=== PATIENT | female | born 1935 | race Asian ===

== ENCOUNTER 2016-09-16 15:24 | Inpatient (IN) | payer OTHER, MEDICARE ==
[~2016-09-16] VITALS: Ht 157.5 cm; Wt 67.6 kg
[~2016-09-16 15:24] MED LIST: ASPI81CT89 PO; CELE200C PO; LAC PO; METO25TA PO; ORE25 PO; RANI-287 PO; SIMV40TA5 PO; SULF-59 PO; TYL3 PO
[2016-09-16 15:33] VITALS: BP 148/70
--- NOTE | 2016-09-16 15:35 | NUR ---
Patient BIBA to bed 4. at this time.
[2016-09-16] MEDS ORDERED: NACL 0.9% 1,000 ML IV SCH (15:43)
[2016-09-16] MEDS ORDERED: ONDANSETRON 4 MG/2 ML VIAL IVP ONE (15:45)
--- NOTE | 2016-09-16 15:50 | NUR ---
PT WAS BIBA WITH GENERALIZED WEAKNESS, WITH N/V/ SKIN IS PINK/WARM/DRY;LUNGS CLEAR BL; HR EVEN AND REGULAR; PT HAS FEVER, PATIENT POSITIONED FOR COMFORT; HOB ELEVATED; BEDRAILS UP X2; BED DOWN. ER MD MADE AWARE OF PT STATUS.
[2016-09-16 16:25] LABS: BASOPHILS # (AUTO) 0.1 K/uL (0.00-0.22); BASOPHILS % (AUTO) 0.6 % (0.0-2.0); EOSINOPHILS # (AUTO) 0.3 K/uL (0-0.4); EOSINOPHILS % (AUTO) 2.5 % (0.0-4.0); HEMOGLOBIN 11.2 g/dL (12.0-16.0); LYMPHOCYTES # (AUTO) 0.6 K/uL (2.5-16.5); LYMPHOCYTES % (AUTO) 4.6 % (20.5-51.1); MEAN CORPUSCULAR HEMOGLOBIN 24 pg (27-31); MEAN CORPUSCULAR HGB CONC 32 g/dL (33-37); MEAN CORPUSCULAR VOLUME 75 fL (80-94); MONOCYTES # (AUTO) 0.6 K/uL (0.8-1.0); MONOCYTES % (AUTO) 4.5 % (1.7-9.3); NEUTROPHILS # (AUTO) 12.3 K/uL (1.8-7.7); NEUTROPHILS % (AUTO) 87.8 % (42.2-75.2); PLATELET COUNT (AUTO) 135 K/uL (140-450); RED BLOOD CELL COUNT(AUTO) 4.67 MIL/uL (4.20-5.40); RED CELL DISTRIBUTION WIDTH 17.7 % (11.6-13.7); WHITE BLOOD COUNT (AUTO) 13.9 K/uL (4.8-10.8)
[2016-09-16 16:30] LABS: AMYLASE 70 U/L (25-115); LIPASE 69 U/L (73-393)
[2016-09-16 16:34] LABS: PARTIAL THROMBOPLASTIN TIME 27.2 secs (22-35.6); PROTHROMBIN TIME 10.3 secs (10.8-13.4)
[2016-09-16 16:36] LABS: ALANINE AMINOTRANSFERASE 14 U/L (14-59); ALBUMIN 3.4 g/dL (3.4-5.0); ALKALINE PHOSPHATASE 139 U/L (46-116); ANION GAP 13.9 (8-16); ASPARTATE AMINOTRANSFERASE 18 U/L (15-37); CALCIUM 8.3 mg/dL (8.5-10.1); CARBON DIOXIDE 24.8 mmol/L (21-32); CHLORIDE 104 mmol/L (98-107); CREATININE 1.4 mg/dL (0.6-1.3); GLUCOSE 147 mg/dL (74-106); POTASSIUM 3.7 mmol/L (3.5-5.1); SODIUM SERUM 139 mmol/L (136-145); TOTAL BILIRUBIN 0.9 mg/dL (0.0-1.0); TOTAL PROTEIN, SERUM 8.2 g/dL (6.4-8.2); UREA NITROGEN, BLOOD 21 mg/dL (7-18)
[2016-09-16 16:39] LABS: LACTIC ACID 1.3 mmol/L (0.4-2.0)
[2016-09-16] MEDS ORDERED: ACETAMINOPHEN 650 MG SUPP RC ONE (16:50)
[2016-09-16] MEDS ORDERED: IBUPROFEN 600 MG TAB PO ONE (16:50)
--- NOTE | 2016-09-16 17:16 | NUR ---
MOTRIN 600MG CRUSHED MIXED WITH APPLE JUICE
--- NOTE | 2016-09-16 17:47 | NUR ---
ORAL TEMP CHECKED 101.2
[2016-09-16] MEDS ORDERED: NACL 0.9% 1,000 ML IV ONE (17:50)
[2016-09-16] MEDS ORDERED: cefTRIAXone 1,000 MG VIAL ONE (18:34)
[2016-09-16 18:44] LABS: APPEARANCE,URINE TURBID (CLEAR); BILIRUBIN,URINE NEGATIVE (NEGATIVE); BLOOD, URINE 2+ (NEGATIVE); COLOR,URINE YELLOW (YELLOW); LEUKOCYTE ESTERASE ,URINE 2+ (NEGATIVE); NITRITE, URINE POSITIVE (NEGATIVE); PROTEIN,URINE 1+ (NEGATIVE); UGLUCOSE NEGATIVE (NEGATIVE)
[2016-09-16] MEDS ORDERED: HYDROcodone/APAP 5/325 MG 1 TAB TAB PO PRN (18:55)
[2016-09-16 18:56] LABS: BACTERIA,URINE 2+ /HPF (None Seen); RBC,URINE >100 /HPF (0-5); SQUAMOUS EPITHELIAL CELL,UR None Seen /LPF (0-3 (FEW)); WBC,URINE TOO MANY TO COUNT /HPF (0-5)
[2016-09-16] MEDS ORDERED: DEXT 5% / NACL 0.9% 500 ML IV ONE (19:00)
--- NOTE | 2016-09-16 19:15 | NUR ---
REPORT GIVEN TO MANAGER RESPIRATORY CARE RN .
--- NOTE | 2016-09-16 19:49 | NUR ---
Patient will be admitted to care of DR COLÓN. Admited to TELE 121B. Will go to room 121B. Belongings list completed. Report to ANGELES BLUE .
[2016-09-16 19:55] VITALS: BP 106/55
--- NOTE | 2016-09-16 19:55 | NUR ---
PATIENT ARRIVED IN THE UNIT ON A GURNEY. PATIENT SPEAKS ROMANIAN. PATIENT LETHARGIC BUT IS ABLE TO FOLLOW SIMPLE COMMANDS. NO S/SX OF DISTRESS NOTED. PT ON 3L O2 VIA NC. TATE CATHETER IN PLACE DRAINING CLEAR, YELLOW URINE. IV LINE NOTED TO THE RIGHT WRIST. PATIENT PLACED ON TELE MONITORING. BED LOWERED AND CALL LIGHT WITHIN REACH.
[2016-09-16] MEDS: ACETAMINOPHEN 325 MG TAB PO PRN (20:36)
[2016-09-16] MEDS: SIMVASTATIN 40 MG TAB PO SCH (20:36)
[2016-09-16] MEDS: FAMOTIDINE 20 MG TAB PO SCH (20:37)
[2016-09-16] MEDS: METOPROLOL 25 MG TAB PO SCH (20:37)
[2016-09-16] MEDS ORDERED: PNEUMOCOCCAL VACCINE 23 MCG/0.5 ML VIAL IMVAC SCH (22:30)
--- NOTE | 2016-09-16 23:53 | NUR ---
DECREASE IN PATIENT'S LOC NOTED. TEMP 96.9 BP: 80/40 HR: 81 02 SAT 99% ON 3L. PAGED DR RAZO
--- NOTE | 2016-09-16 23:58 | NUR ---
DR RAZO NOTFIED ABOUT THE PATIENT'S STATUS. ORDERS RECEIVED
[2016-09-17] VITALS (10 sets, daily range): BP systolic 80–140; BP diastolic 40–59
[2016-09-17] MEDS ORDERED: VANCOMYCIN PER PHARMACY MC PRN
[2016-09-17] MEDS ORDERED: NACL 0.9% 1,000 ML IV ONE
[2016-09-17] MEDS ORDERED: VANCOMYCIN 1GM/DEXT 5% PREMIX 200 ML IV ONE
--- NOTE | 2016-09-17 00:05 | NUR ---
NS BOLUS INITIATED. WILL CONTINUE TO MONITOR
--- NOTE | 2016-09-17 00:15 | NUR ---
BP 105/53 HR 79. PATIENT LETHARGIC
[2016-09-17 00:36] LABS: BLOOD GAS HCO3 21.1 mmol/L; BLOOD GAS PCO2 40.8 mmHg (20-50); BLOOD GAS PH 7.332 (7.35-7.45); BLOOD GAS PO2 104.5 mmHg
[2016-09-17 00:37] LABS: BLOOD GAS BASE EXCESS -4.4 mmol/L (-2.0-2.0); BLOOD GAS O2 SAT% 97.6 % (92.0-98.5)
--- NOTE | 2016-09-17 00:40 | NUR ---
BP: 86/41 HR:78
--- NOTE | 2016-09-17 00:50 | NUR ---
PATIENT TRANSFERRED TO ICU. REPORT GIVEN TO MIRZA MACARIO T
--- NOTE | 2016-09-17 00:55 | NUR ---
RECEIVED BEDSIDE REPORT FROM ANGELES BLUE. PATIENT IS AWAKE AND ALERT AND SPEAKS PRIMARILY IRISH. PATIENT IS ABLE TO FOLLOW SIMPLE COMMANDS. THERE IS A #18 IN THE RIGHT WRIST RECEIVING D5NS AT 100 ML/HR. VITALS ARE STABLE AT THIS TIME. PATIENT'S BLOOD PRESSURE IS 103/53. PATIENT IS RECEIVING OXYGEN THERAPY AT 3LPM VIA NASAL CANNULA. NO S/S OF SOB OR RESPIRATORY DISTRESS NOTED. THERE IS A TATE CATHETER IN PLACE WITH MODERATE AMOUNT OF LORIE COLORED URINE NOTED. PLAN OF CARE TONIGHT TO INCLUDE CARDIAC MONITORING, VITALS Q2H, AND MEDICATION ADMINISTRATION. HOB AT 30 DEGREES WITH BED IN LOW POSITION. WILL CONTINUE TO MONITOR PATIENT.
[2016-09-17] MEDS ORDERED: PIPERACILLIN/TAZOBACTAM 3.375 GM VIAL IV ONE ×2 (00:56→05:37)
--- NOTE | 2016-09-17 01:01 | NUR ---
PAGED DR. RAZO. WILL WAIT FOR CALL BACK.
[2016-09-17] MEDS ORDERED: NOREPINEPHRINE 4 MG in DEXTROSE 5% 250 ML IV PRN (01:10)
--- NOTE | 2016-09-17 01:10 | NUR ---
SPOKE TO DR. RAZO TO CLARIFY ORDERS REGARDING LEVOPHED. MD ORDERED LEVOPHED 4MG PER PROTOCOL TO MAINTAIN SYSTOLIC 90 AND ABOVE. WILL FOLLOW UP WITH NEW MD ORDERS.
[2016-09-17] MEDS: PIPER/TAZO 3.375GM/D5W PREMIX 50 ML IV SCH ×4 (01:40→21:29)
[2016-09-17] MEDS ORDERED: VANCOMYCIN 1,000 MG VIAL ONE (01:52)
--- NOTE | 2016-09-17 02:35 | NUR ---
PATIENT RESTING COMFORTABLY IN BED WITH NO SIGNS OF DISTRESS OR SOB NOTED. HOB AT 30 DEGREES WITH BED IN LOW POSITION. WILL CONTINUE TO MONITOR PATIENT.
--- NOTE | 2016-09-17 03:00 | NUR ---
PATIENT REPOSITIONED FOR COMFORT. NO SIGNS OF SOB OR DISTRESS NOTED. BLOOD PRESSURE IS 105/41 AND HR IS 72. CONTINUE TO MONITOR PATIENT.
--- NOTE | 2016-09-17 04:05 | NUR ---
PATIENT REPOSITIONED FOR COMFORT. PATIENT REQUESTED BLANKET. PROVIDED PATIENT WITH 1 BLANKET. PATIENT'S NEEDS MET AT THIS TIME. VITALS SIGNS STABLE. CONTINUE TO MONITOR PATIENT.
--- NOTE | 2016-09-17 04:58 | NUR ---
YARD SUPERVISOR COTTON GIN MIKO AT BEDSIDE FOR MORNING LAB DRAWS.
[2016-09-17] MEDS: ACETAMINOPHEN 325 MG TAB PO PRN ×2 (05:45→11:03)
[2016-09-17 06:13] LABS: BASOPHILS # (AUTO) 0.1 K/uL (0.00-0.22); HEMATOCRIT 29.8 % (36-48); HEMOGLOBIN 9.4 g/dL (12.0-16.0)
[2016-09-17 06:20] LABS: BASOPHILS % (AUTO) 0.4 % (0.0-2.0); EOSINOPHILS # (AUTO) 0.2 K/uL (0-0.4); EOSINOPHILS % (AUTO) 1.1 % (0.0-4.0); LYMPHOCYTES # (AUTO) 1.5 K/uL (2.5-16.5); LYMPHOCYTES % (AUTO) 10.5 % (20.5-51.1); MEAN CORPUSCULAR HEMOGLOBIN 24 pg (27-31); MEAN CORPUSCULAR HGB CONC 32 g/dL (33-37); MEAN CORPUSCULAR VOLUME 76 fL (80-94); MONOCYTES # (AUTO) 1.2 K/uL (0.8-1.0); MONOCYTES % (AUTO) 8.5 % (1.7-9.3); NEUTROPHILS # (AUTO) 11.6 K/uL (1.8-7.7); NEUTROPHILS % (AUTO) 79.5 % (42.2-75.2); PLATELET COUNT (AUTO) 141 K/uL (140-450); RED CELL DISTRIBUTION WIDTH 17.5 % (11.6-13.7); WHITE BLOOD COUNT (AUTO) 14.6 K/uL (4.8-10.8)
[2016-09-17 06:42] LABS: ANION GAP 11.2 (8-16); CALCIUM 7.1 mg/dL (8.5-10.1); CARBON DIOXIDE 23.5 mmol/L (21-32); CHLORIDE 110 mmol/L (98-107); CREATININE 1.4 mg/dL (0.6-1.3); GLUCOSE 174 mg/dL (74-106); POTASSIUM 3.7 mmol/L (3.5-5.1); SODIUM SERUM 141 mmol/L (136-145); UREA NITROGEN, BLOOD 19 mg/dL (7-18)
--- NOTE | 2016-09-17 07:10 | NUR ---
PATIENT IN STABLE CONDITION WITH NO SIGNS OF DISTRESS NOTED. ALL PATIENT'S NEEDS ATTENDED TO DURING SHIFT. ENDORSED CONTINUITY OF CARE TO TUNG RN.
--- NOTE | 2016-09-17 07:20 | NUR ---
RECEIVED REPORT FROM MIRZA MACARIO. PT ALERT AND ORIENTED X3. VERBALLY RESPONSIVE. FAROESE SPEAKING. VERY LITTLE LAO. ABLE TO COMMUNICATE THROUGH GESTURES AND VICE PRESIDENT OF TALENT ACQUISITION NEEDED. NO C/O PAIN OR DISCOMFORT. BILATERAL PERRLA NOTED IN EYES. PT ON 3 L O2 SATURATING AT 100%. SR ON MONITOR. ABLE TO MOVE ALL EXTREMITIES. SKIN IS INTACT. R WRIST 18 GAUGE IV NOTED. PATENT AND INTACT. NO C/O NAUSEA OR VOMITING. TATE CATHETER NOTED. DRAINING YELLOW URINE. SAFETY PRECAUTION MAINTAINED. NO S/SX OF ACUTE DISTRESS NOTED. CALL LIGHT WITHIN REACH. BED AT LOWEST SETTING. WILL CONTINUE TO MONITOR FOR CHANGES.
[2016-09-17] MEDS ORDERED: PROBIOTIC SCREEN 1 EA MISC MC PRN (07:30)
[2016-09-17] MEDS ORDERED: LACTOBACILLUS ACIDOPHILUS PO SCH (08:00)
[2016-09-17] MEDS ORDERED: [UNRECOGNIZED DRUG - OTHER] PO SCH (08:00)
[2016-09-17] MEDS ORDERED: LEVOFLOXACIN 500 MG/D5W PREMIX 100 ML IV SCH (08:00)
--- NOTE | 2016-09-17 08:00 | NUR ---
PT ABLE TO CONSUME 50% OF REGULAR DIET DESPITE ONLY HAVING ONE TOOTH. TOLERATED WELL. PER GRANDDAUGHTER NICK, PT EATS SOFT SOLID FOOD AT HOME LIKE THAT. MD NOTIFIED. DIET CHANGED PER MD INSTRUCTION FOR NOW. WILL CONTINUE TO MONITOR TOLERANCE AT LUNCH.
[2016-09-17] MEDS: FAMOTIDINE 20 MG TAB PO SCH ×2 (08:55→21:29)
[2016-09-17] MEDS: ASPIRIN 81 MG TAB.CHEW PO SCH (08:55)
[2016-09-17] MEDS: LACTOBACILLUS RHAMNOSUS GG 1 EACH CAP GT SCH ×2 (08:55→21:29)
[2016-09-17] MEDS: METOPROLOL 25 MG TAB PO SCH (08:55)
--- NOTE | 2016-09-17 09:00 | NUR ---
MEDICATION ADMINISTERED ORDERED. CRUSHED WITH APPLE SAUCE. TOLERATED WELL.
[2016-09-17] MEDS: CELECOXIB 100 MG CAP PO SCH (09:02)
--- NOTE | 2016-09-17 09:30 | NUR ---
PATIENT HAS BEEN SCREENED AND CATEGORIZED HIGH NUTRITION RISK. PATIENT WILL BE SEEN WITHIN 1-2 DAYS OF ADMISSION. 09/17/16-09/18/[address]
--- NOTE | 2016-09-17 10:00 | NUR ---
PT RESTING COMFORTABLY IN BED. EASILY AWAKEN. NO C/O PAIN OR DISCOMFORT. WILL CONTINUE TO MONITOR.
--- NOTE | 2016-09-17 10:15 | NUR ---
RECEIVED CALL FROM LAB OF BLOOD CULTURE PRELIMINARY RESULT 1012. PAGED AT 1020. AWAITING CALL BACK.
--- NOTE | 2016-09-17 11:08 | NUR ---
PT C/O 3/10 HEADACHE. PAIN MEDICATION ADMINISTERED. TOLERATED WELL. WILL CONTINUE TO MONITOR.
--- NOTE | 2016-09-17 11:41 | NUR ---
DR. COLÓN AT BEDSIDE TO SEE PT. ALERT DR. COLÓN ABOUT POSITIVE BLOOD CULTURE RESULT. WILL F/U WITH NEW ORDERS.
[2016-09-17 12:19] LABS: BASOPHILS # (AUTO) 0.1 K/uL (0.00-0.22); BASOPHILS % (AUTO) 0.8 % (0.0-2.0); EOSINOPHILS # (AUTO) 0.1 K/uL (0-0.4); EOSINOPHILS % (AUTO) 0.7 % (0.0-4.0); HEMATOCRIT 30.7 % (36-48); HEMOGLOBIN 9.6 g/dL (12.0-16.0); LYMPHOCYTES # (AUTO) 1.1 K/uL (2.5-16.5); LYMPHOCYTES % (AUTO) 9.3 % (20.5-51.1); MEAN CORPUSCULAR HEMOGLOBIN 24 pg (27-31); MEAN CORPUSCULAR HGB CONC 31 g/dL (33-37); MEAN CORPUSCULAR VOLUME 76 fL (80-94); MONOCYTES # (AUTO) 0.7 K/uL (0.8-1.0); NEUTROPHILS # (AUTO) 10.3 K/uL (1.8-7.7); NEUTROPHILS % (AUTO) 83.2 % (42.2-75.2); PLATELET COUNT (AUTO) 129 K/uL (140-450); RED BLOOD CELL COUNT(AUTO) 4.05 MIL/uL (4.20-5.40); RED CELL DISTRIBUTION WIDTH 17.5 % (11.6-13.7); WHITE BLOOD COUNT (AUTO) 12.3 K/uL (4.8-10.8)
--- NOTE | 2016-09-17 12:30 | NUR ---
REPORT GIVEN TO MIRZA ENRIQUEZ. PT IS STABLE. TRANSFERRED IN BED WITH PORTABLE CARDIAC MONITORING AND PORTABLE O2. TRANSFERRED WITH EMT. NO S/SX OF ACUTE DISTRESS NOTED. PT IS STABLE.
[2016-09-17 12:42] LABS: ALANINE AMINOTRANSFERASE 19 U/L (14-59); ALBUMIN 2.5 g/dL (3.4-5.0); ALKALINE PHOSPHATASE 113 U/L (46-116); ANION GAP 11.5 (8-16); ASPARTATE AMINOTRANSFERASE 26 U/L (15-37); CALCIUM 7.4 mg/dL (8.5-10.1); CARBON DIOXIDE 23.8 mmol/L (21-32); CHLORIDE 109 mmol/L (98-107); CREATININE 1.3 mg/dL (0.6-1.3); GLUCOSE 81 mg/dL (74-106); POTASSIUM 3.3 mmol/L (3.5-5.1); SODIUM SERUM 141 mmol/L (136-145); TOTAL BILIRUBIN 0.7 mg/dL (0.0-1.0); TOTAL PROTEIN, SERUM 6.7 g/dL (6.4-8.2); UREA NITROGEN, BLOOD 17 mg/dL (7-18)
--- NOTE | 2016-09-17 12:59 | NUR ---
09/17/16 RD INITIAL ASSESSMENT COMPLETED PLEASE REFER TO NUTRITION ASSESSMENT UNDER CARE ACTIVITY FOR ESTIMATED NUTRITIONAL NEEDS. 1. CONTINUE REGULAR DIET WITH TEXTURE PER PATIENT PREFERENCES 2. RD TO FOLLOW-UP 2-3 DAYS; HIGH RISK AJAY BORREGO RD
--- NOTE | 2016-09-17 13:00 | NUR ---
RECEIVED PATIENT FROM ICU FOR CONTINUITY OF CARE. PATIENT AWAKE ALERT AND ORIENTED X 4 CHINESE SPEAKING BUT ABLE TO MAKE NEEDS KNOWN . NO S/S OF RESP DISTRESS NOTED NO DISCOMFORT NOTED. IV SITE RT WRIST G 18 INTACT AND PATENT. F/C DRAIN CLEAR YELLOW URINE. SAFETY HAS BEEN ENFORCED, UNIT ORIENTATION GIVEN. PLAN OF CARE DISCUSSED WITH THE PATIENT, VITALS STABLE WILL CONTINUE TO MONITOR.
--- NOTE | 2016-09-17 13:45 | NUR ---
CM NOTE INITIAL REVIEW FAXED TO [facility] [phone] PH SHANNAN [phone] JULY [phone]
--- NOTE | 2016-09-17 16:00 | NUR ---
RELAXED NO DISCOMFORT NOTED VITALS STABLE AT THIS TIME.
--- NOTE | 2016-09-17 18:30 | NUR ---
PATIENT REMOVED IV LINE. NEW IV LINE STARTED ON LEFT HAND GAUGE 22 C/O NAUSEA NOTIFIED DR JACOB COVERING FOR DR COLÓN NEW ORDER CARRIED OUT , WAITING PHARMACY TO CLARIFY.
[2016-09-17] MEDS ORDERED: ONDANSETRON 4 MG/2 ML VIAL IVP PRN (18:40)
--- NOTE | 2016-09-17 19:00 | NUR ---
PATIENT WITH FAMILY MEMBER STABLE CONDITION , ENDORSE THE CARE TO ROBER BLUE
--- NOTE | 2016-09-17 19:15 | NUR ---
RECEIVED REPORT FROM AM NURSE. PT FAMILY AT BEDSIDE WITH HELP TO COMMUNICATE WITH PT. PT RESTING IN BED, AOX3, ABLE TO VERBALIZE NEEDS. CORRECTIONS LIEUTENANT IN PLACE. 3L O2 NC IN PLACE. PT DENIES CHEST PAIN, SOB OR S/S OF ACUTE DISTRESS. TATE CATH IN PLACE, DRAINING CLEAR YELLOW URINE. IV ACCESS ASYMPTOMATIC, PATENT AND INTACT. SALINE LOCKED AT THIS TIME. DISCUSSED AND REVIEWED PLAN OF CARE WITH PT. PT AND PT'S FAMILY VERBALIZED UNDERSTANDING. ALL NEEDS MET. SAFETY MEASURES ENSURED. CALL LIGHT WITHIN REACH. WILL CONTINUE TO MONITOR.
--- NOTE | 2016-09-17 19:45 | NUR ---
PT C/O NAUSEA. ADMINISTERED IV ZOFRAN PRN ORDERED WITH EDUCATION. PT TOLERATED MED WELL. ALL NEEDS MET. SAFETY MEASURES ENSURED. CALL LIGHT WITHIN REACH. WILL CONTINUE TO MONITOR.
[2016-09-17] MEDS: SIMVASTATIN 40 MG TAB PO SCH (21:29)
--- NOTE | 2016-09-17 21:32 | NUR ---
RT AT BEDSIDE TO COLLECT SPUTUM SAMPLE. PT TOLERATED WELL. DUE MEDICATIONS ADMINISTERED WITH EDUCATION. PT TOLERATED WELL. ALL NEEDS MET. SAFETY MEASURES ENSURED. CALL LIGHT WITHIN REACH. WILL CONTINUE TO MONITOR.
[2016-09-18] VITALS: BP 128/57
--- NOTE | 2016-09-18 | NUR ---
PT RESTING COMFORTABLY IN BED. ALL NEEDS MET. SAFETY MEASURES ENSURED. CALL LIGHT WITHIN REACH. WILL CONTINUE TO MONITOR.
[2016-09-18 04:00] VITALS: BP 128/61
[2016-09-18] MEDS: PIPER/TAZO 3.375GM/D5W PREMIX 50 ML IV SCH ×3 (04:45→20:40)
[2016-09-18] MEDS: ACETAMINOPHEN 325 MG TAB PO PRN ×2 (04:45→20:38)
--- NOTE | 2016-09-18 04:45 | NUR ---
PT TEMP 101.6, COOLING MEASURES MAINTAINED, ADMINISTERED TYLENOL PRN ORDERED WITH EDUCATION. PT VERBALIZED UNDERSTANDING, TOLERATED MED WELL. IVPB INFUSING WELL. ALL NEEDS MET. SAFETY MEASURES ENSURED. CALL LIGHT WITHIN REACH. WILL CONTINUE TO MONITOR.
--- NOTE | 2016-09-18 07:25 | NUR ---
ENDORSED PLAN OF CARE TO AM NURSE. CONDITION STABLE.
--- NOTE | 2016-09-18 07:26 | NUR ---
PT AWAKE AND ALERT, NO SIGNS OF ACUTE DISTRESS. PRIMARY LANGUAGE KYRGYZ. BOWEL SOUNDS ACTIVE IN ALL 4 QUADRANTS. BOWEL AND BLADDER INCONTINENCE WITH TATE CATHETER IN PLACE. AMBULATORY WITH ASSIST. SKIN INTACT. DENIES PAIN AT THIS TIME. IV PATENT AND ASYMPTOMATIC. RE-ORIENTED PATIENT TO HOSPITAL AND TO UNIT, PT VERBALIZED UNDERSTANDING. BED IN LOW POSITION WITH BILATERAL HALF SIDE RAILS UP, CALL LIGHT WITHIN REACH.
[2016-09-18 07:58] VITALS: BP 106/68
[2016-09-18] MEDS: ASPIRIN 81 MG TAB.CHEW PO SCH (08:12)
[2016-09-18] MEDS: CELECOXIB 100 MG CAP PO SCH (08:12)
[2016-09-18] MEDS: FAMOTIDINE 20 MG TAB PO SCH ×2 (08:12→20:38)
[2016-09-18] MEDS: LACTOBACILLUS RHAMNOSUS GG 1 EACH CAP GT SCH ×2 (08:12→20:38)
[2016-09-18] MEDS ORDERED: VANCOMYCIN 750 MG in DEXTROSE 5% 250 ML IV SCH (09:00)
--- NOTE | 2016-09-18 10:30 | NUR ---
PT RESTING COMFORTABLY IN BED, NO SIGNS OF ACUTE DISTRESS. BED IN LOW POSITION WITH BILATERAL HALF SIDE RAILS UP, CALL LIGHT WITHIN REACH. SAFETY CHECKS IN PLACE. WILL CONTINUE TO MONITOR.
--- NOTE | 2016-09-18 11:45 | NUR ---
CM NOTE CONCURRENT REVIEW FAXED TO [facility] [phone] PH SHANNAN [phone] JULY [phone]
[2016-09-18 12:00] VITALS: BP 119/59
--- NOTE | 2016-09-18 12:15 | NUR ---
DR COLÓN AT PATIENT BEDSIDE.
--- NOTE | 2016-09-18 12:35 | NUR ---
RECEIVED NEW ORDERS FOR BLOOD CULTURES AND LABS, NOTED, WILL CARRY OUT.
--- NOTE | 2016-09-18 14:00 | NUR ---
PT SLEEPING, NO SIGNS OF ACUTE DISTRESS. SAFETY CHECKS IN PLACE, WILL CONTINUE TO MONITOR.
[2016-09-18 14:04] LABS: BASOPHILS # (AUTO) 0.1 K/uL (0.00-0.22); BASOPHILS % (AUTO) 1.7 % (0.0-2.0); EOSINOPHILS # (AUTO) 0.2 K/uL (0-0.4); EOSINOPHILS % (AUTO) 2.1 % (0.0-4.0); HEMATOCRIT 31.8 % (36-48); HEMOGLOBIN 10.1 g/dL (12.0-16.0); LYMPHOCYTES # (AUTO) 1.6 K/uL (2.5-16.5); MEAN CORPUSCULAR HEMOGLOBIN 24 pg (27-31); MEAN CORPUSCULAR HGB CONC 32 g/dL (33-37); MEAN CORPUSCULAR VOLUME 75 fL (80-94); MONOCYTES # (AUTO) 0.9 K/uL (0.8-1.0); MONOCYTES % (AUTO) 10.1 % (1.7-9.3); NEUTROPHILS # (AUTO) 5.8 K/uL (1.8-7.7); NEUTROPHILS % (AUTO) 67.1 % (42.2-75.2); PLATELET COUNT (AUTO) 137 K/uL (140-450); RED BLOOD CELL COUNT(AUTO) 4.21 MIL/uL (4.20-5.40); RED CELL DISTRIBUTION WIDTH 17.6 % (11.6-13.7); WHITE BLOOD COUNT (AUTO) 8.6 K/uL (4.8-10.8)
[2016-09-18 14:33] LABS: ALANINE AMINOTRANSFERASE 25 U/L (14-59); ALBUMIN 2.7 g/dL (3.4-5.0); ALKALINE PHOSPHATASE 114 U/L (46-116); ASPARTATE AMINOTRANSFERASE 34 U/L (15-37); CALCIUM 8.1 mg/dL (8.5-10.1); CHLORIDE 106 mmol/L (98-107); CREATININE 1.4 mg/dL (0.6-1.3); GLUCOSE 145 mg/dL (74-106); SODIUM SERUM 139 mmol/L (136-145); TOTAL BILIRUBIN 0.7 mg/dL (0.0-1.0); TOTAL PROTEIN, SERUM 7.3 g/dL (6.4-8.2); UREA NITROGEN, BLOOD 18 mg/dL (7-18)
[2016-09-18 16:00] VITALS: BP 120/52
--- NOTE | 2016-09-18 16:20 | NUR ---
PT AWAKE AND ALERT, PATIENT COMPLAINT OF WANTING TO REMOVE CATHETER DUE TO PAIN, DR COLÓN MADE AWARE. PER DR COLÓN MUST LEAVE TATE IN AT THIS TIME. EXPLAINED TO PATIENT THE NEED TO LEAVE TATE IN, PATIENT NODDED HEAD IN UNDERSTANDING.
--- NOTE | 2016-09-18 17:00 | NUR ---
PT AWAKE AND ALERT, TATE DRAINING. NO SIGNS OF ACUTE DISTRESS. SAFETY CHECKS IN PLACE, WILL CONTINUE TO MONITOR.
--- NOTE | 2016-09-18 19:20 | NUR ---
PT AWAKE AND ALERT, NO SIGNS OF ACUTE DISTRESS. ENDORSED TO SINTER FEEDER NURSE FOR CONTINUITY OF CARE.
--- NOTE | 2016-09-18 19:30 | NUR ---
RECEIVED REPORT FROM DAY RN AT BEDSIDE, PATIENT IS AAOX3 ON ROOM AIR, NO SOB OR SIGN OF DISTRESS AT THIS TIME, IV TO LEFT HAND PATENT AND INTACT, SKIN INTACT, PT STATED SHE HAS A HEADACHE AND FEELS HOT AND COLD, DISCUSSED CHELY OF CARE WITH PT, PT UNABLE TO FULLY COMPREHEND D/T LANGUAGE BARRIER, REINFORCEMENT NEEDED. SAFETY MEASURES CHECKED, TATE PRESENT ,CALL LIGHT WITHIN REACH. WILL CONTINUE TO MONITOR.
[2016-09-18 20:00] VITALS: BP 133/64
[2016-09-18] MEDS: SIMVASTATIN 40 MG TAB PO SCH (20:39)
--- NOTE | 2016-09-18 20:51 | NUR ---
PM MEDS ADMINISTERED, PT TOLERATED WELL, TEMP ELEVATE TO 101.4, COOLING MEASURES IN PLACE, TYLENOL ADMINISTERED, CALL LIGHT WITHIN REACH. WILL CONTINUE TO MONITOR
--- NOTE | 2016-09-18 22:30 | NUR ---
PT SLEEPING, NO SIGN OF DISTRESS, CALL LIGHT WITHIN REACH. WILL CONTINUE TO MONITOR
[2016-09-19] VITALS: BP 115/50
--- NOTE | 2016-09-19 00:15 | NUR ---
VITAL SIGNS STABLE, NO SOB OR SIGN OF DISTRESS AT THIS TIME, ASSISTED PT UP TO RESTROOM, PT HAD SMALL BM, CALL LIGHT WITHIN REACH. WILL CONTINUE TO MONITOR,.
--- NOTE | 2016-09-19 02:23 | NUR ---
PT SLEEPING, NO SIGN OF DISTRESS, CALL LIGHT WITHIN REACH. WILL CONTINUE TO MONITOR
[2016-09-19 04:00] VITALS: BP 124/64
--- NOTE | 2016-09-19 04:10 | NUR ---
VITAL SIGNS STABLE, NO SIGN OF DISTRESS, CALL LIGHT WITHIN REACH. WILL CONTINUE TO MONITOR
[2016-09-19] MEDS: PIPER/TAZO 3.375GM/D5W PREMIX 50 ML IV SCH ×2 (04:37→12:40)
[2016-09-19] MEDS: ACETAMINOPHEN 325 MG TAB PO PRN ×2 (04:38→22:23)
[2016-09-19 06:38] LABS: ALANINE AMINOTRANSFERASE 24 U/L (14-59); ALBUMIN 2.6 g/dL (3.4-5.0); ALKALINE PHOSPHATASE 105 U/L (46-116); ANION GAP 13.4 (8-16); ASPARTATE AMINOTRANSFERASE 31 U/L (15-37); CALCIUM 8.1 mg/dL (8.5-10.1); CARBON DIOXIDE 22.9 mmol/L (21-32); CHLORIDE 106 mmol/L (98-107); CREATININE 1.2 mg/dL (0.6-1.3); GLUCOSE 101 mg/dL (74-106); POTASSIUM 3.3 mmol/L (3.5-5.1); SODIUM SERUM 139 mmol/L (136-145); TOTAL BILIRUBIN 0.6 mg/dL (0.0-1.0); TOTAL PROTEIN, SERUM 6.9 g/dL (6.4-8.2); UREA NITROGEN, BLOOD 16 mg/dL (7-18)
[2016-09-19 07:05] LABS: BASOPHILS % (AUTO) 0.6 % (0.0-2.0); EOSINOPHILS # (AUTO) 0.3 K/uL (0-0.4); EOSINOPHILS % (AUTO) 3.1 % (0.0-4.0); HEMATOCRIT 30.1 % (36-48); HEMOGLOBIN 9.8 g/dL (12.0-16.0); LYMPHOCYTES # (AUTO) 1.3 K/uL (2.5-16.5); LYMPHOCYTES % (AUTO) 15.7 % (20.5-51.1); MEAN CORPUSCULAR HEMOGLOBIN 24 pg (27-31); MEAN CORPUSCULAR HGB CONC 33 g/dL (33-37); MEAN CORPUSCULAR VOLUME 75 fL (80-94); MONOCYTES # (AUTO) 0.9 K/uL (0.8-1.0); MONOCYTES % (AUTO) 11.1 % (1.7-9.3); NEUTROPHILS # (AUTO) 5.6 K/uL (1.8-7.7); NEUTROPHILS % (AUTO) 69.5 % (42.2-75.2); PLATELET COUNT (AUTO) 122 K/uL (140-450); RED BLOOD CELL COUNT(AUTO) 4.01 MIL/uL (4.20-5.40); RED CELL DISTRIBUTION WIDTH 16.9 % (11.6-13.7); WHITE BLOOD COUNT (AUTO) 8.1 K/uL (4.8-10.8)
--- NOTE | 2016-09-19 07:31 | NUR ---
ENDORSED PATIENT TO DAY RN AT BEDSIDE, PATIENT IN STABLE CONDITION
--- NOTE | 2016-09-19 07:34 | NUR ---
RECEIVED REPORT FROM MIRZA MULLIGAN. PT IS SLEEPING IN BED BUT EASILY AWAKEN, PT IS A/OX3-4, PT IS AMBULATES WITH ASSIST, PT HAS IV ON THE LT HAND, PATENT, INTACT, FLUSHING WELL, PT IS ON O2 2L NC, SKIN IS INTACT, NO S/S RESPIRATORY DISTRESS OR DISCOMFORT NOTED, SAFETY/FALL PRECAUTIONS ARE IN PLACE, CALL LIGHT IS WITHIN REACH, WILL CONTINUE TO MONITOR.
[2016-09-19 08:00] VITALS: BP 113/59
[2016-09-19] MEDS: ASPIRIN 81 MG TAB.CHEW PO SCH (09:00)
[2016-09-19] MEDS: CELECOXIB 100 MG CAP PO SCH (09:07)
[2016-09-19] MEDS: LACTOBACILLUS RHAMNOSUS GG 1 EACH CAP GT SCH ×2 (09:07→22:23)
--- NOTE | 2016-09-19 09:07 | NUR ---
DUE MEDICATIONS GIVEN, PT TOLERATED WELL, CALL LIGHT WITHIN REACH.
[2016-09-19] MEDS: FAMOTIDINE 20 MG TAB PO SCH ×2 (09:08→22:23)
--- NOTE | 2016-09-19 10:52 | NUR ---
PATIENT IS WALKING DOWN THE [place] AND AROUND THE NURSES STATION WITH PHYSICAL THERAPY.
[2016-09-19 12:00] VITALS: BP 106/51
[2016-09-19] MEDS ORDERED: POTASSIUM CHLORIDE 10 MEQ TABER PO SCH (12:12)
--- NOTE | 2016-09-19 12:50 | NUR ---
PT IS SITTING IN BED WATCHING TV, CALL LIGHT IS WITHIN REACH.
--- NOTE | 2016-09-19 13:44 | NUR ---
CM NOTE CONCURRENT REVIEW FAXED TO [facility] [phone] PH SHANNAN [phone] JULY [phone]
--- NOTE | 2016-09-19 14:44 | NUR ---
PT IS SLEEPING IN BED AT THIS TIME, CALL LIGHT IS WITHIN REACH.
--- NOTE | 2016-09-19 14:56 | NUR ---
PAGED DR. BLEVINS TO ASK HIM HOW LONG HE WANTED TO CONTINUE THE ANTI BIOTICS AND ALSO TO LET HIM KNOW THAT THERE WAS NO E COLI GROWTH AFTER 24 HRS FOR THE BLOOD CULTURE.
[2016-09-19 16:00] VITALS: BP 130/53
--- NOTE | 2016-09-19 16:40 | NUR ---
PT IS RESTING IN BED WATCHING TV, NO S/S OF RESPIRATORY DISTRESS OR DISCOMFORT NOTED, CALL LIGHT WITHIN REACH.
[2016-09-19] MEDS: LEVOFLOXACIN 500 MG/D5W PREMIX 100 ML IV SCH (17:59)
--- NOTE | 2016-09-19 18:25 | NUR ---
PT IS SLEEPING IN BED AT THIS TIME.
--- NOTE | 2016-09-19 19:35 | NUR ---
PT ENDORSED TO MIRZA RICHTER. FOR CONTINUITY OF CARE, PT STABLE AT THIS TIME.
--- NOTE | 2016-09-19 19:40 | NUR ---
RECEIVED REPORT FROM AM NURSE. PT FAMILY AT BEDSIDE. PT RESTING IN BED, AOX4, ABLE TO VERBALIZE NEEDS. PT COOPERATIVE. PT C/O HEADACHE, WILL MEDICATE WITH TYLENOL PRN. BARROW WORKER HELPER IN PLACE. TATE CATH DISCONTINUED ORDERED, CLEAR YELLOW URINE NOTED, PT TOLERATED WELL. IV ACCESS ASYMPTOMATIC, PATENT AND INTACT. PT HELPED TO THE RESTROOM, ABLE TO AMBULATE WITH 1 PERSON, MINIMAL ASSIST. PT TOLERATED WELL. ALL NEEDS MET. SAFETY MEASURES ENSURED. CALL LIGHT WITHIN REACH. WILL CONTINUE TO MONITOR.
[2016-09-19 20:00] VITALS: BP 124/64
[2016-09-19] MEDS: SIMVASTATIN 40 MG TAB PO SCH (22:24)
--- NOTE | 2016-09-19 22:24 | NUR ---
ADMINISTERED DUE MEDICATIONS WITH EDUCATION. PT TOLERATED MEDS WELL. PT C/O MILD PAIN. SEE PAIN ASSESSMENT. ADMINISTERED TYLENOL PRN ORDERED. ALL NEEDS MET. SAFETY MEASURES ENSURED. CALL LIGHT WITHIN REACH. WILL CONTINUE TO MONITOR.
[2016-09-20] VITALS: BP 115/50
--- NOTE | 2016-09-20 01:00 | NUR ---
PT SLEEPING COMFORTABLY, NO S/S OF ACUTE DISTRESS. ALL NEEDS MET. SAFETY MEASURES ENSURED. CALL LIGHT WITHIN REACH. WILL CONTINUE TO MONITOR.
[2016-09-20 04:00] VITALS: BP 132/68
--- NOTE | 2016-09-20 04:00 | NUR ---
PT SLEEPING COMFORTABLY, NO S/S OF ACUTE DISTRESS. ALL NEEDS MET. SAFETY MEASURES ENSURED. CALL LIGHT WITHIN REACH. WILL CONTINUE TO MONITOR.
--- NOTE | 2016-09-20 07:15 | NUR ---
ENDORSED PLAN OF CARE TO AM NURSE. CONDITION STABLE.
--- NOTE | 2016-09-20 07:18 | NUR ---
RECEIVED REPORT FROM MIRZA RICHTER. PT IS SLEEPING IN BED BUT EASILY AWAKEN, PT IS A/OX3-4, PT IS AMBULATES WITH ASSIST, PT HAS IV ON THE LT HAND, PATENT, INTACT, FLUSHING WELL, SKIN IS INTACT, NO S/S RESPIRATORY DISTRESS OR DISCOMFORT NOTED, SAFETY/FALL PRECAUTIONS ARE IN PLACE, CALL LIGHT IS WITHIN REACH, WILL CONTINUE TO MONITOR.
[2016-09-20 07:39] LABS: BASOPHILS # (AUTO) 0.1 K/uL (0.00-0.22); BASOPHILS % (AUTO) 0.8 % (0.0-2.0); EOSINOPHILS # (AUTO) 0.3 K/uL (0-0.4); EOSINOPHILS % (AUTO) 4.4 % (0.0-4.0); HEMATOCRIT 30.4 % (36-48); LYMPHOCYTES # (AUTO) 1.4 K/uL (2.5-16.5); LYMPHOCYTES % (AUTO) 17.4 % (20.5-51.1); MEAN CORPUSCULAR HEMOGLOBIN 25 pg (27-31); MEAN CORPUSCULAR HGB CONC 33 g/dL (33-37); MEAN CORPUSCULAR VOLUME 75 fL (80-94); MONOCYTES # (AUTO) 0.8 K/uL (0.8-1.0); MONOCYTES % (AUTO) 10.8 % (1.7-9.3); NEUTROPHILS # (AUTO) 5.2 K/uL (1.8-7.7); NEUTROPHILS % (AUTO) 66.6 % (42.2-75.2); PLATELET COUNT (AUTO) 150 K/uL (140-450); RED BLOOD CELL COUNT(AUTO) 4.06 MIL/uL (4.20-5.40); RED CELL DISTRIBUTION WIDTH 17.2 % (11.6-13.7)
[2016-09-20 07:51] LABS: ALANINE AMINOTRANSFERASE 27 U/L (14-59); ALBUMIN 2.8 g/dL (3.4-5.0); ALKALINE PHOSPHATASE 107 U/L (46-116); ANION GAP 11.6 (8-16); ASPARTATE AMINOTRANSFERASE 31 U/L (15-37); CALCIUM 8.4 mg/dL (8.5-10.1); CARBON DIOXIDE 24.9 mmol/L (21-32); CHLORIDE 106 mmol/L (98-107); GLUCOSE 127 mg/dL (74-106); POTASSIUM 3.5 mmol/L (3.5-5.1); SODIUM SERUM 139 mmol/L (136-145); TOTAL BILIRUBIN 0.4 mg/dL (0.0-1.0); TOTAL PROTEIN, SERUM 7.4 g/dL (6.4-8.2); UREA NITROGEN, BLOOD 15 mg/dL (7-18)
[2016-09-20 08:00] VITALS: BP 123/75
[2016-09-20 08:05] LABS: WHITE BLOOD COUNT (AUTO) 7.8 K/uL (4.8-10.8)
[2016-09-20] MEDS: ASPIRIN 81 MG TAB.CHEW PO SCH (09:00)
[2016-09-20] MEDS: LACTOBACILLUS RHAMNOSUS GG 1 EACH CAP GT SCH (09:25)
[2016-09-20] MEDS: ACETAMINOPHEN 325 MG TAB PO PRN (09:25)
[2016-09-20] MEDS: FAMOTIDINE 20 MG TAB PO SCH (09:25)
--- NOTE | 2016-09-20 09:25 | NUR ---
DUE MEDICATIONS GIVEN, PT TOLERATED WELL, CALL LIGHT WITHIN REACH, WILL CONTINUE TO MONITOR.
--- NOTE | 2016-09-20 10:00 | NUR ---
PHYSICAL THERAPY IS WORKING WITH PT AT THIS TIME, PT IS AMBULATING AROUND THE NURSES STATION.
--- NOTE | 2016-09-20 10:43 | NUR ---
09/20/16 RD FOLLOW-UP ASSESSMENT COMPLETED PLEASE REFER TO NUTRITION ASSESSMENT UNDER CARE ACTIVITY FOR ESTIMATED NUTRITIONAL NEEDS. 1. CHANGE DIET TEXTURE TO REGULAR, MECHANICAL SOFT DIET. 2. RD TO FOLLOW-UP 3-5 DAYS, MODERATE RISK AJAY BORREGO RD
[2016-09-20 12:00] VITALS: BP 129/60
--- NOTE | 2016-09-20 12:30 | NUR ---
PT IS RESTING IN BED WATCHING TV, CALL LIGHT IS WITHIN REACH.
--- NOTE | 2016-09-20 14:00 | NUR ---
CM NOTE CONCURRENT REVIEW FAXED TO [facility] [phone] PH SHANNAN [phone] JULY [phone]
--- NOTE | 2016-09-20 14:30 | NUR ---
PT IS SLEEPING IN BED AT THIS TIME.
[2016-09-20 16:00] VITALS: BP 136/79
--- NOTE | 2016-09-20 16:07 | NUR ---
CALLED THE PATIENT'S GRAND DAUGHTER NICK AT [phone], I REACHED HER VOICEMAIL I LET HER KNOW I WAS CALLING FROM [facility] TO LET HER KNOW HER GRANDMOTHER WAS BEING DISCHARGED TODAY, I LEFT HER A CALL BACK NUMBER ASKING HER TO RETURN MY PHONE CALL.
--- NOTE | 2016-09-20 17:44 | NUR ---
I CALLED THE PATIENT'S GRAND DAUGHTER AGAIN (NICK), I DID SPEAK WITH HER, I LET HER KNOW I WAS CALLING FROM [facility] TO LET HER KNOW HER GRAND MOTHER HAD BEEN DISCHARGED TODAY. NICK SAID SHE WOULD GO AHEAD AND LET HER MOTHER KNOW BECAUSE SHE WOULD NOT BE ABLE TO PICK HER UP SINCE SHE WOULD BE AT SCHOOL.
[2016-09-20] MEDS: LEVOFLOXACIN 500 MG/D5W PREMIX 100 ML IV SCH (18:15)
--- NOTE | 2016-09-20 18:50 | NUR ---
DISCHARGE INSTRUCTIONS GIVEN, ID WRIST BAND REMOVED, IV REMOVED, CATHETER TIP INTACT. PT STABLE UPON DISCHARGE ACCOMPANIED BY HER GRAND DAUGHTER.
== END 2016-09-20 19:00 | disposition home or self-care (01) | DRG 720 ==
LOC: MED 15:24 → MTU 18:54 → MIC 09-17 00:50 → MTU 09-17 14:39
PROVIDERS: ADMIT Hospitalist; ATTEND Hospitalist
DX: A41.51 Sepsis due to Escherichia coli [E. coli] (principal); G93.41 Metabolic encephalopathy; J18.9 Pneumonia, unspecified organism; D69.6 Thrombocytopenia, unspecified; N39.0 Urinary tract infection, site not specified; D64.9 Anemia, unspecified; B96.20 Unspecified Escherichia coli [E. coli] as the cause of diseases classified elsewhere; R73.9 Hyperglycemia, unspecified; I10 Essential (primary) hypertension; E78.5 Hyperlipidemia, unspecified; M19.90 Unspecified osteoarthritis, unspecified site; E78.00 Pure hypercholesterolemia, unspecified; Z90.49 Acquired absence of other specified parts of digestive tract
CPT/HCPCS: 36415; 36600; 71010; 80048; 80053; 81001; 82150; 82553; 82803; 82948; 83605; 83690; 83880; 84484; 85025; 85610; 85730; 87040; 87070; 87081; 87086; 87186; 87205; 93005; 96361; 96365; 96375; 97110; 97116; 97530; 99285; J0696; J1956; J2405; J2543; J3370; J7030; J7042; J7060; Q0092

== ENCOUNTER 2020-08-07 06:54 | Inpatient (IN) | payer OTHER, MEDICARE, SELFPAY ==
[~2020-08-07] VITALS: Ht 152.4 cm; Wt 48.5 kg
[~2020-08-07 06:54] MED LIST changes: +ACET-503 PO; +ASPI-1822 PO; -ASPI81CT89 PO; -CELE200C PO; -ORE25 PO; +SIMV-34 PO; -SIMV40TA5 PO; -SULF-59 PO; -TYL3 PO
[2020-08-07 06:56] VITALS: BP 150/59
--- NOTE | 2020-08-07 06:56 | NUR ---
PT SHONDA TOMASS. TAKEN TO BED 4
--- NOTE | 2020-08-07 07:00 | NUR ---
Dr. Causey examining patient.
[2020-08-07] MEDS ORDERED: DICYCLOMINE HCL LIQUID 20 MG, ALUMINUM HYD/MAG/SIMETHICONE 30 ML, LIDOCAINE VISCOUS 2% ... PO ONE ×3 (07:05)
--- NOTE | 2020-08-07 07:08 | NUR ---
PT BIBA FOR C/O ABDOMINAL PAIN X 3 DAYS. PER [facility], PT REPORTS GENERALIZED ABDOMINAL PAIN 10/10. REPORTS HX OF GERD, PT DESCRIBES PAIN STARTING IN EPIGASTRIC AREA AND TRAVELING UP ESOPHOGUS. ABDOMEN IS SOFT, FLAT AND TENDER TO TOUCH. PT DENIES N/V/D, FEVER, CHILLS, CP, SOB. SKIN IS WARM, DRY AND INTACT. MED HX: ANEMIA, GERD, HTN ALLERGIES: NKA
[2020-08-07] MEDS ORDERED: ALUMINUM HYD/MAG/SIMETHICONE 30 ML UDC ONE (07:10)
[2020-08-07] MEDS ORDERED: LIDOCAINE VISCOUS 2% 20 ML UDC ONE (07:10)
[2020-08-07] MEDS ORDERED: DICYCLOMINE HCL LIQUID 10 MG/5 ML UDC ONE (07:11)
--- NOTE | 2020-08-07 07:16 | NUR ---
REPORT GIVEN TO MIRZA ORTIZ FOR CONTINUITY OF CARE.
--- NOTE | 2020-08-07 07:33 | NUR ---
LABS COLLECTED FROM IV, DROPPEPD OFF AT LAB WITH ILANA FONG
[2020-08-07 07:41] LABS: BASOPHILS % (AUTO) 0.3 % (0.0-2.0); EOSINOPHILS # (AUTO) 0.1 K/uL (0-0.4); EOSINOPHILS % (AUTO) 1.2 % (0.0-4.0); HEMOGLOBIN 10.9 g/dL (12.0-16.0); LYMPHOCYTES # (AUTO) 0.7 K/uL (2.5-16.5); LYMPHOCYTES % (AUTO) 10.3 % (20.5-51.1); MEAN CORPUSCULAR HEMOGLOBIN 29 pg (27-31); MEAN CORPUSCULAR HGB CONC 33 g/dL (33-37); MEAN CORPUSCULAR VOLUME 86.2 fL (80-94); MONOCYTES # (AUTO) 0.2 K/uL (0.8-1.0); NEUTROPHILS # (AUTO) 6.1 K/uL (1.8-7.7); NEUTROPHILS % (AUTO) 85.2 % (42.2-75.2); PLATELET COUNT (AUTO) 109 K/uL (140-450); RED BLOOD CELL COUNT(AUTO) 3.83 MIL/uL (4.20-5.40); RED CELL DISTRIBUTION WIDTH 18.1 % (11.6-13.7); WHITE BLOOD COUNT (AUTO) 7.2 K/uL (4.8-10.8)
--- NOTE | 2020-08-07 07:50 | NUR ---
STRAIGHT CATH WITH PEDIATRIC CATH 8 F, PT TOLERATED WELL PER ERMD.
[2020-08-07 08:01] LABS: ALBUMIN 3.4 g/dL (3.4-5.0); ANION GAP 11.4 (8-16); ASPARTATE AMINOTRANSFERASE 271 U/L (15-37); CARBON DIOXIDE 28.5 mmol/L (21-32); CHLORIDE 105 mmol/L (98-107); CREATININE 0.9 mg/dL (0.6-1.3); GLUCOSE 164 mg/dL (74-106); LIPASE 153 U/L (73-393); SODIUM SERUM 142 mmol/L (136-145); TOTAL BILIRUBIN 2.6 mg/dL (0.0-1.0); UREA NITROGEN, BLOOD 21 mg/dL (7-18)
[2020-08-07 08:03] LABS: POTASSIUM 2.9 mmol/L (3.5-5.1)
--- NOTE | 2020-08-07 08:03 | NUR ---
CRITICAL LAB VALUES: POTASSIUM 2.[address] MONDRAGON MADE AWARE
[2020-08-07] MEDS ORDERED: POTASSIUM CHLORIDE 10 MEQ TABER PO ONE (08:30)
--- NOTE | 2020-08-07 08:53 | NUR ---
PT TAKEN TO CT VIA FARRUKH
[2020-08-07 09:45] LABS: APPEARANCE,URINE CLEAR (CLEAR); BILIRUBIN,URINE NEGATIVE (NEGATIVE); BLOOD, URINE NEGATIVE (NEGATIVE); COLOR,URINE YELLOW (YELLOW); LEUKOCYTE ESTERASE ,URINE NEGATIVE (NEGATIVE); NITRITE, URINE NEGATIVE (NEGATIVE); UGLUCOSE NEGATIVE (NEGATIVE)
[2020-08-07] MEDS ORDERED: metroNIDAZOLE 500 MG/NS PREMIX 100 ML IV ONE (09:45)
[2020-08-07] MEDS ORDERED: MORPHINE SULFATE 4 MG/ML SYR IVP ONE (09:45)
[2020-08-07] MEDS ORDERED: NACL 0.9% 1,000 ML IV ONE ×2 (09:45→12:05)
[2020-08-07] MEDS ORDERED: cefTRIAXone 1,000 MG VIAL ONE (09:57)
--- NOTE | 2020-08-07 10:11 | NUR ---
HERNANDO: [phone] ANDRIY: [phone]
--- NOTE | 2020-08-07 10:17 | NUR ---
NO ANSWER FROM NICK (DAUGHTER), LEFT MESSAGE TO CALL BACK, CALLED MOTHER IN LAW ANDRIY, INFORMED HER OF PT STATUS AND ASKED FOR PT DAUGHTER TO CONTACT US.
--- NOTE | 2020-08-07 10:25 | NUR ---
SPOKE WITH GRANDDAUGHTER BRIANA, GAVE HER UPDATE ON PT AND ASKED HER TO SPEAK WITH ADMITTING IN REGARDS TO INSURANCE AND UPDATING INFO. PT INFORMED ME THAT DAUGHTER WAS ON HER WAY.
--- NOTE | 2020-08-07 11:40 | NUR ---
PAUL WAS SWABBED AND LEFT AT LAB WITH ILANA FONG
[2020-08-07] MEDS ORDERED: DOCUSATE SODIUM 100 MG GELCAP PO PRN (11:50)
[2020-08-07] MEDS ORDERED: HYDROcodone/APAP 5/325 MG 1 TAB TAB PO PRN (11:50)
[2020-08-07] MEDS ORDERED: NACL 0.9% 1,000 ML IV SCH (11:50)
[2020-08-07] MEDS ORDERED: LORazepam 2 MG/ML VIAL IM/IVP PRN (11:50)
[2020-08-07] MEDS ORDERED: POTASSIUM CHLORIDE 10 MEQ TABER PO PRN (11:50)
[2020-08-07] MEDS ORDERED: MAG SULF 2000 MG/WATER PREMIX 50 ML IV PRN (11:50)
[2020-08-07] MEDS ORDERED: ONDANSETRON 4 MG/2 ML VIAL IM/IVP PRN (11:50)
[2020-08-07] MEDS ORDERED: POTASSIUM CHLORIDE 40 MEQ, LIDOCAINE MPF 1% 25 MG in NACL 0.9% 250 ML IV ONE (11:50)
[2020-08-07] MEDS ORDERED: MORPHINE SULFATE 2 MG/ML SYR IVP PRN ×2 (11:50→13:25)
[2020-08-07] MEDS ORDERED: ACETAMINOPHEN 325 MG TAB PO PRN (11:50)
[2020-08-07] MEDS ORDERED: ZOLPIDEM 5 MG TAB PO PRN (11:50)
[2020-08-07] MEDS ORDERED: metroNIDAZOLE 500 MG/NS PREMIX 100 ML IV SCH (13:00)
[2020-08-07] MEDS: NACL 0.9% 1,000 ML IV SCH ×2 (13:25→22:59)
[2020-08-07] MEDS ORDERED: LORazepam 2 MG/ML VIAL IVP PRN (13:25)
[2020-08-07] MEDS ORDERED: ONDANSETRON 4 MG/2 ML VIAL IVP PRN (13:25)
--- NOTE | 2020-08-07 13:44 | NUR ---
Patient will be admitted to care of NIDIA TROTTER. Admited to MED SURG. Will go to room 112B. Belongings list completed. Report to PHILOMENA BLUE.
--- NOTE | 2020-08-07 13:52 | NUR ---
ERMD IN ROOM WITH PT TO EXPLAIN REASON FOR STAY, LOAN BROKER PHONE FOR COSTA RICAN ON LINE. JACKIE #[id number]
--- NOTE | 2020-08-07 14:19 | NUR ---
Patient will be admitted to care of DR JACOB. Admited to [facility]. Will go to [id number]. Belongings list completed. DIANA GAVE Report to PHILOMENA BLUE.
[2020-08-07 14:22] VITALS: BP 138/59
--- NOTE | 2020-08-07 14:22 | NUR ---
PT ARRIVED ON A GURNEY FROM THE ED IN STABLE CONDITION. PT TRANSFERRED TO HOSPITAL BED. PT SKIN INTACT WITH NO WOUNDS NOTED. PT PLACED ON FALL RISK PRECAUTIONS WITH SIGN, GOWN AND WRIST BAND PLACED. PT HAS A A RIGHT AC 20 GAUGE THAT IS PATENT AND INTACT. IV FLUIDS STARTED, NS AT 100 ML/HR. PT PLACED ON NPO STATUS FOR PENDING SURGERY. PT VITAL SIGNS: 97.9 TEMP, 98%, 65 HR, 18 RR, 138/59. PT ORIENTED TO ROOM, CALL LIGHT, AND PLAN. ALL SAFETY MEASURES IN PLACE, CALL LIGHT WITHIN REACH. WILL CONTINUE TO MONITOR.
--- NOTE | 2020-08-07 16:24 | NUR ---
ROUNDED ON PT. PT IS RESTING IN BED WITH NO SIGNS OF ACUTE DISTRESS. PT DENIES PAIN AT THIS TIME. ALL SAFETY MEASURES IN PLACE AT THIS TIME.
--- NOTE | 2020-08-07 18:41 | NUR ---
ROUNDED ON PT, PT IS RESTING COMFORTABLE IN BED WITH NO SIGNS OF ACUTE DISTRESS. SAFETY MEASURES IN PLACE, CALL LIGHT WITHIN REACH. WILL CONTINUE TO MONITOR.
--- NOTE | 2020-08-07 19:11 | NUR ---
RECEIVED PATIENT FROM AM SHIFT NURSE FOR CONTINUITY OF CARE. ALERT AND ABLE TO MAKE NEEDS KNOWN. RESPIRATIONS EVEN, UNLABORED. NO S/S RESPIRATORY DISTRESS. S1/S2 AUSCULTATED. SKIN WARM, DRY. IV SITE TO RIGHT AC 20G PATENT/INTACT, INFUSING FLUIDS WELL. ABDOMEN SOFT, NONTENDER, NONDISTENDED. BOWEL SOUNDS ACTIVE x4 QUADRANTS. NO C/O ABDOMINAL PAIN AT THIS TIME. PATIENT IS CONTINENT OF B/B. PLAN OF CARE DISCUSSED. SAFETY PRECAUTIONS IN PLACE. CALL LIGHT IN REACH AT ALL TIMES.
--- NOTE | 2020-08-07 19:11 | NUR ---
GAVE REPORT TO PHYSICALLY IMPAIRED TEACHER FOR CONTINUITY OF CARE. POC DISCUSSED. PT IN STABLE CONDITION.
[2020-08-07] MEDS: metroNIDAZOLE 500 MG/NS PREMIX 100 ML IV SCH (20:13)
[2020-08-07] MEDS: ACETAMINOPHEN 325 MG TAB PO PRN (20:13)
[2020-08-07] MEDS ORDERED: SIMVASTATIN 40 MG TAB PO SCH (21:00)
[2020-08-07] MEDS ORDERED: METOPROLOL 25 MG TAB PO SCH (21:00)
--- NOTE | 2020-08-07 21:00 | NUR ---
DUE MEDS GIVEN. PATIENT RESTING COMFORTABLY IN BED. NO S/S ACUTE DISTRESS. CALL LIGHT IN REACH AT ALL TIMES. SAFETY PRECAUTIONS IN PLACE.
--- NOTE | 2020-08-07 23:19 | NUR ---
ASSISTED PATIENT TO THE BATHROOM. NO S/S ACUTE DISTRESS. PATIENT AMBULATES WELL WITH ASSISTANCE. RETURNED BACK TO BED SAFELY WITH SAFETY PRECAUTIONS IN PLACE. CALL LIGHT IN REACH AT ALL TIMES.
[2020-08-08] VITALS: BP 114/43
--- NOTE | 2020-08-08 01:44 | NUR ---
PATIENT AMBULATED TO BATHROOM WITH ASSISTANCE. NO S/S ACUTE DISTRESS. NO C/O PAIN. CALL LIGHT IN REACH. SAFETY PRECAUTIONS IN PLACE.
--- NOTE | 2020-08-08 03:22 | NUR ---
MADE ROUNDS. PATIENT ASLEEP. NO S/S ACUTE DISTRESS. CALL LIGHT WITHIN REACH. SAFETY PRECAUTIONS IN PLACE.
[2020-08-08] MEDS: metroNIDAZOLE 500 MG/NS PREMIX 100 ML IV SCH ×3 (04:38→20:23)
--- NOTE | 2020-08-08 05:22 | NUR ---
PATIENT IS ASLEEP. NO S/S ACUTE DISTRESS. PATIENT CLEAN/DRY. CALL LIGHT WITHIN REACH. SAFETY PRECAUTIONS IN PLACE.
[2020-08-08 06:42] LABS: BASOPHILS % (AUTO) 0.7 % (0.0-2.0); EOSINOPHILS # (AUTO) 0.2 K/uL (0-0.4); EOSINOPHILS % (AUTO) 4.1 % (0.0-4.0); HEMATOCRIT 33.9 % (36-48); HEMOGLOBIN 11.2 g/dL (12.0-16.0); LYMPHOCYTES # (AUTO) 1.8 K/uL (2.5-16.5); LYMPHOCYTES % (AUTO) 29.9 % (20.5-51.1); MEAN CORPUSCULAR HEMOGLOBIN 29 pg (27-31); MEAN CORPUSCULAR HGB CONC 33 g/dL (33-37); MEAN CORPUSCULAR VOLUME 86.8 fL (80-94); MONOCYTES # (AUTO) 0.3 K/uL (0.8-1.0); MONOCYTES % (AUTO) 5.5 % (1.7-9.3); NEUTROPHILS # (AUTO) 3.5 K/uL (1.8-7.7); NEUTROPHILS % (AUTO) 59.8 % (42.2-75.2); PLATELET COUNT (AUTO) 107 K/uL (140-450); RED CELL DISTRIBUTION WIDTH 17.4 % (11.6-13.7); WHITE BLOOD COUNT (AUTO) 5.8 K/uL (4.8-10.8)
[2020-08-08 07:06] LABS: ALBUMIN 2.9 g/dL (3.4-5.0); ANION GAP 11.2 (8-16); ASPARTATE AMINOTRANSFERASE 170 U/L (15-37); CARBON DIOXIDE 24.3 mmol/L (21-32); CHLORIDE 111 mmol/L (98-107); CREATININE 0.9 mg/dL (0.6-1.3); GLUCOSE 96 mg/dL (74-106); MAGNESIUM 1.8 mg/dL (1.8-2.4); POTASSIUM 3.5 mmol/L (3.5-5.1); SODIUM SERUM 143 mmol/L (136-145); TOTAL BILIRUBIN 1.6 mg/dL (0.0-1.0); UREA NITROGEN, BLOOD 14 mg/dL (7-18)
--- NOTE | 2020-08-08 07:20 | NUR ---
RECEIVED REPORT FROM [employer] MAINTENANCE SUPERVISOR NURSE FOR CONTINUITY OF CARE, POC DISCUSSED. PT ASLEEP IN BED WITH CHEST RISING AND FALLING EVEN AND UNLABORED. NO S/S OF ACUTE DISTRESS. IV IN LEFT FOREARM 20 GAUGE RUNNING NS AT 60 ML. ALL SAFETY MEASURES IN PLACE, CALL LIGHT WITHIN REACH. WILL CONTINUE TO MONITOR. Addendum: 08/08/20 at 0721 by Arcelia Leonardo RN RIGHT AC 20 GAUGE RUNNING 100 ML/HR
--- NOTE | 2020-08-08 07:51 | NUR ---
CONSENT PRINTED AND PLACED IN PTS CHART PER DR. CARBAJAL ORDER
[2020-08-08] MEDS: ENOXAPARIN 40 MG/0.4 ML SYR SUBQ SCH (08:24)
--- NOTE | 2020-08-08 08:24 | NUR ---
NON ADMINISTERED ENOXAPARIN DUE TO PT PLAN OF PT GETTING SURGERY
[2020-08-08] MEDS: PANTOPRAZOLE 40 MG INJ VIAL IVP SCH (08:40)
[2020-08-08] MEDS: ACETAMINOPHEN 325 MG TAB PO PRN ×2 (08:49→21:48)
--- NOTE | 2020-08-08 08:50 | NUR ---
SCHEDULED MEDICATION ADMINISTERED. PT EDUCATION PROVIDED. PT VERBALIZED A CHARLES AND ASKED FOR TYLENOL. PT IN STABLE CONDITION. ALL SAFETY MEASURES IN PLACE. WILL CONTINUE TO MONITOR.
--- NOTE | 2020-08-08 08:53 | NUR ---
PATIENT HAS BEEN SCREENED AND CATEGORIZED LOW NUTRITION RISK. PATIENT WILL BE SEEN WITHIN 7 DAYS OF ADMISSION. 08/14/[address]
[2020-08-08] MEDS ORDERED: FAMOTIDINE 20 MG TAB PO SCH (09:00)
[2020-08-08] MEDS ORDERED: LACTOBACILLUS RHAMNOSUS GG 1 EACH CAP PO SCH (09:00)
[2020-08-08] MEDS ORDERED: ASPIRIN 81 MG TAB.CHEW PO SCH (09:00)
--- NOTE | 2020-08-08 09:06 | NUR ---
PT ALERT AND ORIENTED X4, ABLE TO GIVE NAME, DATE OF , DATE AND WHERE SHE IS.
[2020-08-08] MEDS: NACL 0.9% 1,000 ML IV SCH ×2 (09:25→12:27)
--- NOTE | 2020-08-08 11:05 | NUR ---
PT ASSISTED TO THE BATHROOM. VOIDED ONCE. PT IS BACK IN BED AND IS IN STABLE CONDITION. DENIES PAIN AT THIS TIME. ALL SAFETY MEASURES IN PLACE. CALL LIGHT WITHIN REACH. WILL CONTINUE TO MONITOR.
--- NOTE | 2020-08-08 11:35 | NUR ---
PT DAUGHTER CALLED CHECKING ON PT. DAUGHTER LISTED CONTACT. ALL QUESTIONS ANSWERED. WILL CALL DAUGHTER WITH ANY UPDATES OR PLAN OF CARE.
--- NOTE | 2020-08-08 12:15 | NUR ---
SCHEDULED ABX ADMINISTERED. PT EDUCATION TOLERATED. PT SAID OKAY. PT STATED SHE WAS COLD, GAVE HER A WARM BLANKET. ALL NEEDS MET. SAFETY MEASURES IN PLACE, CALL LIGHT WITHIN REACH. WILL CONTINUE TO MONITOR.
[2020-08-08] MEDS ORDERED: SUCCINYLCHOLINE CHLORIDE 200 MG/10 ML VIAL IVP ONE (14:05)
[2020-08-08] MEDS ORDERED: PROPOFOL 200 MG/20 ML VIAL IV ONE (14:05)
[2020-08-08] MEDS ORDERED: BUPIVACAINE-MPF/EPI 0.25% 30 ML VIAL INJ ONE (14:13)
[2020-08-08] MEDS ORDERED: LIDOCAINE 1% 500 MG/50 ML VIAL ONE (14:13)
--- NOTE | 2020-08-08 14:15 | NUR ---
DR VILLAGRAN AT BEDSIDE, DISCUSSING SURGERY TO PT ON MARKETING RESEARCHER PHONE IN [place].
--- NOTE | 2020-08-08 14:36 | NUR ---
PT BEING TRANSPORTED TO OR FOR SURGERY. PT SIGNED CONSENT, ID BADGE ON, NO JEWERLY ON. PT IN STABLE CONDITION. VITAL SIGNS WNL. TICKET TO RIDE FORM HANDED TO OR NURSES.
[2020-08-08] MEDS ORDERED: HYDROmorphone 1 MG/ML AMP IVP PRN (14:50)
[2020-08-08] MEDS ORDERED: ROCURONIUM 50 MG/5 ML VIAL IV ONE (14:56)
[2020-08-08] MEDS ORDERED: fentaNYL citrate 0.05 MG/ML VIAL ONE (14:58)
[2020-08-08] MEDS ORDERED: LABETALOL 100 MG/20 ML VIAL ONE (15:25)
[2020-08-08] MEDS ORDERED: hydrALAZINE 20 MG/ML VIAL ONE (15:25)
[2020-08-08] MEDS ORDERED: MORPHINE SULFATE 4 MG/ML SYR ONE (15:46)
[2020-08-08] MEDS ORDERED: KETOROLAC 30 MG/ML VIAL ONE (15:52)
[2020-08-08] MEDS ORDERED: SUGAMMADEX SODIUM 200 MG/2 ML VIAL IV ONE (15:52)
[2020-08-08] MEDS ORDERED: MORPHINE SULFATE 2 MG/ML SYR IVP PRN ×2 (16:25)
[2020-08-08] MEDS ORDERED: ONDANSETRON 4 MG/2 ML VIAL IVP PRN (16:25)
--- NOTE | 2020-08-08 17:08 | NUR ---
PT RETURNED FROM PACU IN STABLE CONDITION, PLACED ON CONTINUOUS PULSE OX. NO MAJOR EVENTS IN THE OR EXCEPT MILDLY HIGH BP, MEDS GIVEN. VITAL SIGNS ARE WNL. PT SHAKES HEAD NO WHEN ASKED IF SHE IS IN PAIN. 4 INCISIONS ON ABD COVERED WITH DERMABOND. PT IS RESTING COMFORTABLE WITH NO SIGNS OF DISTRESS. PT PLACED BACK ON IV FLUIDS. ALL SAFETY MEASURES IN PLACE.
--- NOTE | 2020-08-08 17:43 | NUR ---
Q15 VITAL SIGNS COMPLETE, VITAL SIGNS WNL. PT DENIES PAIN. PT ON TELE MONITOR. ALL SAFETY MEASURES IN PLACE, CALL LIGHT WITHIN REACH WILL CONTINUE TO MONITOR.
--- NOTE | 2020-08-08 19:30 | NUR ---
RECEIVED PATIENT FROM AM SHIFT NURSE FOR CONTINUITY OF CARE. ALERT AND ABLE TO MAKE NEEDS KNOWN. RESPIRATIONS EVEN, UNLABORED. NO S/S RESPIRATORY DISTRESS. S1/S2 AUSCULTATED. SKIN WARM, DRY. IV SITE TO RIGHT AC 20G PATENT/INTACT, INFUSING FLUIDS WELL. ABDOMEN SOFT, NONTENDER, NONDISTENDED. 4 ABDOMINAL INCISION SITES NOTED. NO S/S INFECTION TO SITES. BOWEL SOUNDS ACTIVE x4 QUADRANTS. NO C/O ABDOMINAL PAIN AT THIS TIME. PATIENT IS CONTINENT OF B/B. PLAN OF CARE DISCUSSED. SAFETY PRECAUTIONS IN PLACE. CALL LIGHT IN REACH AT ALL TIMES.
--- NOTE | 2020-08-08 19:53 | NUR ---
PT ENDORSED TO THREAD ROLLER NURSE FOR CONTINUIYT OF CARE, POC DISCUSSED. PT IN STABLE CONDITION
[2020-08-08 20:00] VITALS: BP 122/58
--- NOTE | 2020-08-08 21:00 | NUR ---
DUE MEDS GIVEN. PATIENT RESTING COMFORTABLY IN BED. CALL LIGHT IN REACH. SAFETY PRECAUTIONS IN PLACE.
--- NOTE | 2020-08-08 23:00 | NUR ---
PATIENT ASSISTED TO THE BATHROOM. NO S/S ACUTE DISTRESS. ASSISTED BACK TO BED SAFELY. CALL LIGHT IN REACH. SAFETY PRECAUTIONS IN PLACE.
[2020-08-09] VITALS: BP 117/41
--- NOTE | 2020-08-09 01:44 | NUR ---
ASLEEP. NO S/S ACUTE DISTRESS. CALL LIGHT IN REACH AT ALL TIMES. SAFETY PRECAUTIONS IN PLACE.
--- NOTE | 2020-08-09 03:45 | NUR ---
MADE ROUNDS. PATIENT IS ASLEEP. NO S/S ACUTE DISTRESS. CALL LIGHT WITHIN REACH. SAFETY PRECAUTIONS IN PLACE.
[2020-08-09 04:00] VITALS: BP 123/46
[2020-08-09] MEDS: metroNIDAZOLE 500 MG/NS PREMIX 100 ML IV SCH ×3 (04:34→20:26)
[2020-08-09] MEDS: NACL 0.9% 1,000 ML IV SCH ×2 (04:34→15:14)
--- NOTE | 2020-08-09 05:27 | NUR ---
DUE MEDS GIVEN. PATIENT RESTING COMFORTABLY IN BED. NO S/S ACUTE DISTRESS. CALL LIGHT IN REACH. SAFETY PRECAUTIONS IN PLACE.
[2020-08-09 06:56] LABS: ALBUMIN 2.6 g/dL (3.4-5.0); ANION GAP 14.3 (8-16); ASPARTATE AMINOTRANSFERASE 125 U/L (15-37); CARBON DIOXIDE 21.7 mmol/L (21-32); CHLORIDE 110 mmol/L (98-107); GLUCOSE 138 mg/dL (74-106); SODIUM SERUM 142 mmol/L (136-145); TOTAL BILIRUBIN 0.7 mg/dL (0.0-1.0); UREA NITROGEN, BLOOD 24 mg/dL (7-18)
[2020-08-09 08:00] VITALS: BP 149/48
[2020-08-09] MEDS: PANTOPRAZOLE 40 MG INJ VIAL IVP SCH (08:44)
[2020-08-09] MEDS: ENOXAPARIN 40 MG/0.4 ML SYR SUBQ SCH (08:47)
[2020-08-09] MEDS: HYDROcodone/APAP 5/325 MG 1 TAB TAB PO PRN ×2 (08:48→21:49)
--- NOTE | 2020-08-09 08:48 | NUR ---
ADMINISTERED SCHEDULED MEDS PER MD ORDER. LOVENOX NOT ADMINISTERED DUE TO RECENT PROCEDURE. PRN NORCO GIVEN FOR ABDOMINAL PAIN, SEE PAIN ASSESSMENT NOTES. MED EDUCATION PROVIDED, PATIENT VERBALIZES UNDERSTANDING.
--- NOTE | 2020-08-09 10:41 | NUR ---
PATIENT ASSISTED TO RESTROOM, VOIDED. RETURNED TO BED, SUPINE, NO SIGNS OF ACUTE DISTRESS NOTED. CONTACT MANAGER IN PLACE. SAFETY MEASURES IN PLACE.
[2020-08-09 12:00] VITALS: BP 124/51
--- NOTE | 2020-08-09 14:33 | NUR ---
DC PLANNING: PATIENT HAS AN ORDER FOR PLACEMENT, FAXED TO [facility], SPOKE WITH THE FAMILY DAUGHTER ANDRIY , AGREED THAT HER MOM TO GO TO SNF FOR SKILLED. FAXED TO [facility]. FAXED TO [facility] AND [facility]. DC PLANING TO GO TO [facility]. CM TO FOLLOW Addendum: 08/09/20 at 1505 by Pema Cazares RN DC PLANNING: RECEIVED A CALL FROM [facility] SPOKE WITH [facility] AUTH# [id number] FOR [facility] [id number] AWAITING FOR ROOM NUMBER. CM TO FOLLOW Addendum: 08/09/20 at 1514 by Pema Cazares RN DC PLANNING: PER ABDULLAHI DILLARD NURSE AWAITING FOR DR SCHWARZ TO PERFORM ERCP . CM TO FOLLOW Addendum: 08/10/20 at 1423 by Pema Cazares RN DC PLANNING: PT IS SCHEDULE FOR ERCP TODAYN WITH DR SCHWARZ. DC PLAN TO GO TO [facility] WHEN STABLE. CM TO FOLLOW Addendum: 08/11/20 at 1128 by Pema Cazares RN DC PLANING PT IS GOING TO [facility] ROOM 14C # TO GIVE REPORT [phone] ARRANGED TRANSPORT WITH [facility] [employer] TIME 12:30 PM NOTIFIED [employer] Addendum: 08/11/20 at 1152 by Pema Cazares RN DC PLANNING: [employer] TIME 3 PM WITH [facility] [employer] .
[2020-08-09] MEDS: ACETAMINOPHEN 325 MG TAB PO PRN (15:06)
--- NOTE | 2020-08-09 15:13 | NUR ---
PRN ACETAMINOPHEN ADMINISTERED FOR PAIN, SEE PAIN ASSESSMENT COMMENTS. MED EDUCATION PROVIDED, PATIENT VERBALIZES UNDERSTANDING. TOLERATED WELL WITH SIPS OF WATER. PT AT BEDSIDE AT THIS TIME. ALL VITALS STABLE.
[2020-08-09 16:00] VITALS: BP 167/61
--- NOTE | 2020-08-09 19:29 | NUR ---
ENDORSED TO NIGHTSHIFT NURSE FOR CONTINUITY OF CARE. PATIENT STABLE AT THIS TIME.
--- NOTE | 2020-08-09 19:30 | NUR ---
RECEIVED PATIENT FROM AM NURSE FOR CONTINUITY OF CARE. PATIENT IS AWAKE, ALERT, ABLE TO MAKE NEEDS KNOWN. RESPIRATORY EVEN AND UNLABORED, ON ROOM AIR, NO SIGN OF DISTRESS NOTED. SKIN WARM, DRY, NON DIAPHORETIC. IV ON RIGHT AC 20G, INTACT AND PATENT, IS INFUSING FLUID @70ML/HR. 4 INCISIONS ON ABDOMEN DUE TO LAP ANDRE, VIVEK. BOWEL SOUND ACTIVE TO 4 QUADRANTS. ABDOMEN SOFT, NON TENDER, NON DISTENDED. PATIENT DENIES ANY PAIN OR DISCOMFORT. PLAN OF CARE DISCUSSED. PATIENT VERBALIZED UNDERSTANDING. PRECAUTION IN PLACE. CALL LIGHT WITHIN REACH. WILL CONTINUE TO MONITOR.
--- NOTE | 2020-08-09 19:36 | NUR ---
LATE ENTRY- 0.9% NS BOLUS X2 DISCONTINUED AT 1120 AND 1350
[2020-08-09 20:00] VITALS: BP 135/56
[2020-08-09] MEDS: SENNA 8.6 MG TAB PO SCH (20:26)
--- NOTE | 2020-08-09 20:26 | NUR ---
SCHEDULE MEDICATIONS GIVEN WITH EDUCATION. PATIENT VERBALIZED UNDERSTANDING. PATIENT TOLERATED WELL. PRECAUTION IN PLACE. CALL LIGHT WITHIN REACH. WILL CONTINUE TO MONITOR.
--- NOTE | 2020-08-09 21:49 | NUR ---
PATIENT COMPLAINS OF ABD PAIN, PRN MEDICATION GIVEN WITH EDUCATION, PATIENT TOLERATED WELL. NO SIGN OF DISTRESS NOTED. PRECAUTION IN PLACE. CALL LIGHT WITHIN REACH. WILL CONTINUE TO MONITOR.
--- NOTE | 2020-08-09 22:49 | NUR ---
PATIENT IS SLEEPING, CHEST RISE AND FALL NOTED. NO SIGN OF RESPIRATORY DISTRESS. PRECAUTION IN PLACE. CALL LIGHT WITHIN REACH. WILL CONTINUE TO MONITOR.
--- NOTE | 2020-08-10 00:05 | NUR ---
ASSIST PATIENT AMBULATE TO BATHROOM. PATIENT TOLERATED WELL. NO SIGN OF DISTRESS NOTED. PRECAUTION IN PLACE. CALL LIGHT WITHIN REACH. WILL CONTINUE TO MONITOR.
--- NOTE | 2020-08-10 02:06 | NUR ---
PATIENT IS AWAKE, ASSIST PATIENT AMBULATE TO USE BATHROOM. PATIENT TOLERATED WELL. NO SIGN OF DISTRESS NOTED. PRECAUTION IN PLACE. CALL LIGHT WITHIN REACH. WILL CONTINUE TO MONITOR.
[2020-08-10 04:00] VITALS: BP 158/79
--- NOTE | 2020-08-10 04:00 | NUR ---
PATIENT IS SLEEPING, CHEST RISE AND FALL, NO SIGN OF RESPIRATORY DISTRESS. PRECAUTION IN PLACE. CALL LIGHT WITHIN REACH. WILL CONTINUE TO MONITOR.
--- NOTE | 2020-08-10 04:20 | NUR ---
UNABLE TO DO PRE-OP ASSESSMENT DUE TO PATIENT HAS NOT SCHEDULED ON OR BOARD. WILL ENDORSE TO AM NURSE TO FOLLOW UP.
[2020-08-10] MEDS: metroNIDAZOLE 500 MG/NS PREMIX 100 ML IV SCH ×3 (04:39→22:54)
--- NOTE | 2020-08-10 04:39 | NUR ---
SCHEDULE MEDICATION GIVEN WITH EDUCATION, PATIENT VERBALIZED UNDERSTANDING. PRECAUTION IN PLACE. CALL LIGHT WITHIN REACH. WILL CONTINUE TO MONITOR.
[2020-08-10] MEDS: NACL 0.9% 1,000 ML IV SCH ×2 (05:04→19:23)
--- NOTE | 2020-08-10 06:15 | NUR ---
ASSIST PATIENT AMBULATE TO BATHROOM. PATIENT TOLERATED WELL. NO SIGN OF DISTRESS. WILL CONTINUE TO MONITOR.
--- NOTE | 2020-08-10 07:30 | NUR ---
ENDORSED PATIENT TO AM NURSE FOR CONTINUITY OF CARE. PATIENT IS STABLE. ASSIST PATIENT TO BATHROOM. PATIENT TOLERATED WELL. NO SIGN OF DISTRESS.
--- NOTE | 2020-08-10 07:33 | NUR ---
RECEIVED REPORT FROM NIGHT NURSE PT IS AAOX2-3 ON ROOM AIR, SKIN INTACT, NPO EXCEPT MEDS AND IV INTACT ON RIGHT AC WITH SODIUM CHLORIDE 0.95 AT 70 MLS/HR, FOR ERCP WITH MAC BY DR SCHWARZ. SAFETY MEASURES IN PLACE AND CALL LIGHT WITHIN REACH. WILL CONTINUE TO MONITOR.
[2020-08-10 08:00] VITALS: BP 157/70
[2020-08-10] MEDS: PANTOPRAZOLE 40 MG INJ VIAL IVP SCH (08:38)
[2020-08-10] MEDS: SENNA 8.6 MG TAB PO SCH ×2 (08:39→20:33)
--- NOTE | 2020-08-10 08:39 | NUR ---
MEDICATION DUE GIVEN, PT COMPLAINS OF PAIN 07/21 CHECK VITAL SIGNS 168/60 [place] 81. MEDICATION GIVEN.
--- NOTE | 2020-08-10 10:12 | NUR ---
SCHEDULE MEDICATION CEFTRIAXONE 1000 MG GIVEN INFUSING WELL.
--- NOTE | 2020-08-10 12:27 | NUR ---
METRONIDAZOLE 500 MG GIVEN INFUSING WELL. PT IS RESTING.
--- NOTE | 2020-08-10 13:55 | NUR ---
PT OUT IN HER ROOM FOR ERCP WITH MAC DONE BY DR SCHWARZ
[2020-08-10] MEDS ORDERED: PROPOFOL 200 MG/20 ML VIAL IV ONE ×2 (15:11→15:22)
[2020-08-10] MEDS ORDERED: ONDANSETRON 4 MG/2 ML VIAL IVP PRN (15:40)
[2020-08-10 16:00] VITALS: BP 157/70
--- NOTE | 2020-08-10 16:05 | NUR ---
PT BACK IN HER ROOM S/P ERCP WITH MAC VITAL SIGNS CHECK BP 157/64 LA 88 RR 20 MTEMP 98.9 OXYGEN SATURATION 98%. PT IS STABLE, ASSISTED TO USE RESTROOM.
[2020-08-10] MEDS: LACTATED RINGERS 1,000 ML IV SCH (16:33)
[2020-08-10] MEDS: HYDROcodone/APAP 5/325 MG 1 TAB TAB PO PRN (16:34)
[2020-08-10] MEDS: SUCRALFATE 1 GM TAB PO SCH ×2 (16:58→20:32)
--- NOTE | 2020-08-10 17:05 | NUR ---
SUCRALFATE 1 GRAM ADMINISTERED PT TOLERATED WELL.
--- NOTE | 2020-08-10 19:21 | NUR ---
ENDORSED TO NIGHT NURSE FOR CONTINUITY OF CARE PT IS STABLE.
--- NOTE | 2020-08-10 19:23 | NUR ---
REC. RESTING IN BED, AWAKE, A/OX1. BUT KNOWS HER BIRTHDAY, ABLE TO VERBALIZED NEEDS AND AMBULATE TO THE BR WITH ASSISTANCE. REORIENTED TO HOSPITAL SETTING. IV OF NS INFUSING AT 70 ML/HR RIGHT HAND G24. SAFETY MEASURES ENFORCED. ON BILATERAL LEG SEQUENTIALS. MEDICATIONS AND CARE FOR THE NIGHT DISCUSSED. WITH PATIENT. NEEDS REINFORCEMENT. DENIES PAIN 0/10.
--- NOTE | 2020-08-10 20:30 | NUR ---
ASSISTED WITH THE BEDPAN, VOIDED 120 ML OF CLEAR YELLOW URINE. MADE COMFORTABLE IN BED WITH PILLOWS.
--- NOTE | 2020-08-10 20:35 | NUR ---
SCHEDULED MEDICATIONS GIVEN. SNACK OF JELLO AND PUDDING GIVEN.
[2020-08-10] MEDS: ACETAMINOPHEN 325 MG TAB PO PRN (21:00)
--- NOTE | 2020-08-10 22:00 | NUR ---
ASSISTED OUT OF BED TO GO TO BR. HAD MEDIUM SOFT BM. BACK TO BED, SAFETY MAINTAINED.
[2020-08-11] VITALS: BP 157/70
--- NOTE | 2020-08-11 | NUR ---
ASSISTED WITH BEDPAN TO VOID, ADVISED TO ALTERNATELY TURN TO SIDES WHEN SLEEPING. NEEDS REINFORCEMENT.
--- NOTE | 2020-08-11 02:00 | NUR ---
TURN ON HER CALL LIGHT. ASSISTED TO USE BEDPAN TO VOID. MADE COMFORTABLE IN BED WITH PILLOWS.
--- NOTE | 2020-08-11 04:00 | NUR ---
RESPIRATION EVEN AND UNLABORED, ASLEEP COMFORTABLY IN BED.
[2020-08-11] MEDS: metroNIDAZOLE 500 MG/NS PREMIX 100 ML IV SCH ×2 (05:00→13:00)
--- NOTE | 2020-08-11 07:15 | NUR ---
CONDITION REMAIN STABLE. ENDORSED TO AM SHIFT NURSE FOR CONTINUITY OF CARE.
--- NOTE | 2020-08-11 07:25 | NUR ---
PT ENDORSED BY WIRELESS MANAGER NURSE FOR CONTINUITY OF CARE, POC DISCUSSED. PT IS RESTING COMFORTABLE IN BED WITH NO SIGNS OF ACUTE DISTRESS. PT IS ON NC 2L WITH CHEST RISING AND FALLING EVEN AND UNLABORED. NO S/S OF ACUTE DISTRESS. PT ON A PUREE DIET, NO COMPLAINTS OF PAIN. PT HAS A 24G IN RIGHT HAND RUNNING FLAGYL AT 100 ML/HR. ALL SAFETY MEASURES IN PLACE, CALL LIGHT WITHIN REACH. WILL CONTINUE TO MONITOR.
[2020-08-11 08:00] VITALS: BP 110/55
[2020-08-11] MEDS: LACTATED RINGERS 1,000 ML IV SCH ×2 (08:11)
[2020-08-11] MEDS: SENNA 8.6 MG TAB PO SCH (08:43)
[2020-08-11] MEDS: SUCRALFATE 1 GM TAB PO SCH ×2 (08:44→13:00)
[2020-08-11] MEDS: ACETAMINOPHEN 325 MG TAB PO PRN (08:45)
[2020-08-11] MEDS: NACL 0.9% 1,000 ML IV SCH (08:51)
--- NOTE | 2020-08-11 08:51 | NUR ---
POLI MEDICATION ADMINISTERED. PT EDUCATION PROVIDED. PT ASSESSED, PT HAS 4 INCISION INTACT AND DRY. PT PLACED BACK ON SCDS. PT NC REMOVED SATING AT 100%. PT EATING BREAKFAST. NEW IV FLUID BAG HUNG. PRN PAIN MEDICATION ADMINISTERED FOR MILD CHARLES.
--- NOTE | 2020-08-11 10:30 | NUR ---
IV NOT PATENT, IV REMOVED; CATH IN PLACE. PT TOLERATED. NEW IV STARTED ON RIGHT WRIST, 20 G. ONE ATTEMPT. IV PATENT WITH SALINE FLUSH. ALL SAFETY MEASURES IN PLACE, CALL LIGHT WITHIN REACH.
--- NOTE | 2020-08-11 11:09 | NUR ---
IF MD WOULD LIKE TO CONTINUE OXYGEN PLEASE PLACE PARAMETERS FOR SATURATIONS.
--- NOTE | 2020-08-11 14:49 | NUR ---
[facility], ALL QUESTIONS ANSWERED. LAST SET OF VITAL SIGNS GIVEN. ALL QUESTIONS ANSWERED. NUMBER GIVEN TO CALL BACK FOR MORE QUESTIONS.
--- NOTE | 2020-08-11 15:35 | NUR ---
PT PICKED UP BY [facility] PAUL. PT IN STABLE CONDTION. ALL BELONGINGS IN HER POSESSION, PT ID REMOVED, IV SITE REMOVED. ALL PAPERWORK SIGNED AND GIVEN TO HUMBERTO RODRIGUEZ
--- NOTE | 2020-08-11 15:51 | NUR ---
PRESCRIPTION LEFT IN CHART, CALLED FAMILY MEMBER AND NICK, GRANDDAUGHTER IS PICKING IT UP. BROUGHT TO FRONT LOBBY IN FOLDER FOR ENGRAVER LETTERING.
== END 2020-08-11 15:35 | disposition home or self-care (01) | DRG 263 ==
LOC: MED 06:54 → EDUNIT# 06:54 → MTU 13:30
PROVIDERS: ADMIT Hospitalist; ATTEND Hospitalist
PROC: 0FT44ZZ Resection of Gallbladder, Percutaneous Endoscopic Approach (ICD-10-PCS; principal; 2020-08-06)
PROC: BF131ZZ Fluoroscopy of Gallbladder and Bile Ducts using Low Osmolar Contrast (ICD-10-PCS; 2020-08-06)
PROC: 0DB68ZX Excision of Stomach, Via Natural or Artificial Opening Endoscopic, Diagnostic (ICD-10-PCS; 2020-08-10)
PROC: 0F798ZZ Dilation of Common Bile Duct, Via Natural or Artificial Opening Endoscopic (ICD-10-PCS; 2020-08-10)
PROC: BF101ZZ Fluoroscopy of Bile Ducts using Low Osmolar Contrast (ICD-10-PCS; 2020-08-10)
DX: K80.60 Calculus of gallbladder and bile duct with cholecystitis, unspecified, without obstruction (principal); F03.90 Unspecified dementia, unspecified severity, without behavioral disturbance, psychotic disturbance, mood disturbance, and anxiety; E78.5 Hyperlipidemia, unspecified; K21.00 Gastro-esophageal reflux disease with esophagitis, without bleeding; Z20.822 Contact with and (suspected) exposure to COVID-19; I10 Essential (primary) hypertension; K29.50 Unspecified chronic gastritis without bleeding; K59.00 Constipation, unspecified; Z79.82 Long term (current) use of aspirin; Z79.899 Other long term (current) drug therapy
CPT/HCPCS: 36415; 71045; 76705; 80053; 81003; 82374; 83605; 83690; 83735; 84484; 85025; 86301; 87040; 87081; 88304; 88305; 88312; 88313; 88342; 93005; 96361; 96365; 96367; 96375; 97110; 97112; 97116; 97163-GP; 97530; 99285; C1727; C9113; J0330; J0360; J0696; J1650; J1885; J2001; J2060; J2270; J2704; J3010; J3480; J3490; J7030; J7060; J7120